=== PATIENT | female | born 1995 | race Two or more races ===

== ENCOUNTER → 2021-03-02 | Outpatient (CLI) | payer OTHER ==
[2021-03-02 13:51] LABS: GC DNA AMPLIFICATION NEGATIVE (NEGATIVE)
[2021-03-02 14:19] LABS: HIV 1&2 SCREEN CENTAUR NEGATIVE (NEGATIVE)
== END ==
LOC: M WUC 09:42
PROVIDERS: ATTEND Nurse Practitioner Family
DX: Z11.3 Encounter for screening for infections with a predominantly sexual mode of transmission (principal)